=== PATIENT | female | born 1990 | race Caucasian/White ===

== ENCOUNTER 2018-01-02 19:12 | Emergency (ER) | payer OTHER ==
[~2018-01-02] VITALS: Ht 167.6 cm; Wt 79.0 kg
[2018-01-02 19:20] VITALS: BP 126/84
[2018-01-02] MEDS ORDERED: IBUPROFEN 200 MG TABLET ONE (19:47)
[2018-01-02] MEDS ORDERED: IBUPROFEN 200 MG TABLET PO ONE (20:00)
== END 2018-01-02 20:27 | disposition home or self-care (01) ==
LOC: ED 20:21
DX: J02.0 Streptococcal pharyngitis (principal)
CPT/HCPCS: 87880; 99283

== ENCOUNTER 2018-05-03 12:42 | Emergency (ER) | payer OTHER ==
[~2018-05-03] VITALS: Ht 167.6 cm; Wt 85.0 kg
[2018-05-03] MEDS ORDERED: CEFTRIAXONE 250 MG ONE (13:41)
[2018-05-03] MEDS ORDERED: AZITHROMYCIN 500 MG TABLET ONE (13:41)
[2018-05-03] MEDS ORDERED: CEFTRIAXONE 250 MG IM ONE (14:00)
[2018-05-03] MEDS ORDERED: AZITHROMYCIN 250 MG TABLET PO ONE (14:00)
[2018-05-03 14:15] LABS: CLUE CELLS NONE SEEN (NONE SEEN); WET PREP WBCS NONE SEEN (FEW)
[2018-05-03 14:58] VITALS: BP 124/68
== END 2018-05-03 15:08 | disposition home or self-care (01) ==
LOC: ED 14:48
DX: N89.8 Other specified noninflammatory disorders of vagina (principal); Z86.59 Personal history of other mental and behavioral disorders
CPT/HCPCS: 87210; 87491; 87591; 87808; 96372; 99283; J0696

== ENCOUNTER 2018-11-14 17:00 | Emergency (ER) | payer MEDICAID, OTHER ==
[~2018-11-14] VITALS: Ht 167.6 cm; Wt 83.2 kg
[2018-11-14 17:39] LABS: ALANINE AMINOTRANSFERASE 18 U/L (12-78); ANION GAP 7 mmol/L (5-15); CALCIUM 8.6 mg/dL (8.5-10.1); CHLORIDE 104 mmol/L (98-107); CREATININE 0.89 mg/dL (0.55-1.02)
[2018-11-14 17:43] LABS: ALKALINE PHOSPHATASE 81 U/L (45-117); BILIRUBIN,TOTAL 0.3 mg/dL (0.2-1.0)
[2018-11-14 18:22] VITALS: BP 141/105
--- NOTE | 2018-11-14 18:58 | NUR ---
PT TO ROOM FROM LOBBY.
[2018-11-14] MEDS ORDERED: CLON0.1T22 PO (19:07)
[2018-11-14] MEDS ORDERED: LISD70CA5 PO (19:08)
[2018-11-14 19:32] LABS: BASOPHILS # (AUTO) 0.03 x10^3/uL (0-0.1); BASOPHILS % (AUTO) 0 % (0-1); EOSINOPHILS # (AUTO) 0.07 x10^3/uL (0-0.4); EOSINOPHILS % (AUTO) 1 % (1-7); LYMPHOCYTES # (AUTO) 1.71 x10^3/uL (1-3.4); LYMPHOCYTES % (AUTO) 20 % (22-44); MD NO; MEAN CORPUSCULAR HEMOGLOBIN 29.4 pg (27.0-34.8); MEAN CORPUSCULAR HGB CONC 33.5 g/dL (32.4-35.8); MEAN CORPUSCULAR VOLUME 87.8 fL (80-100); MEAN PLATELET VOLUME 9.1 fL (7.4-10.4); MONOCYTES # (AUTO) 0.35 x10^3/uL (0.2-0.8); MONOCYTES % (AUTO) 4 % (2-9); NEUTROPHILS # (AUTO) 6.21 x10^3/uL (1.8-6.8); NEUTROPHILS % (AUTO) 74 % (42-75); PLATELET COUNT 204 x10^3/uL (130-400); RED BLOOD COUNT 4.52 x10^6/uL (3.82-5.3); RED CELL DISTRIBUTION WIDTH 14.1 % (9.6-15.2)
--- NOTE | 2018-11-14 19:36 | NUR ---
PT IN HOSPITAL GOWN. ROOM SET UP FOR PELVIC EXAM WHICH HAS BEEN COMPLETED. PT ATTEMPTED TO PROVIDE URINE SAMPLE. NONE YET. PT HAS CUP. PT IN US AT THIS TIME.
== END 2018-11-14 20:57 | disposition home or self-care (01) ==
LOC: ED 20:39
DX: N92.0 Excessive and frequent menstruation with regular cycle (principal); F17.200 Nicotine dependence, unspecified, uncomplicated; F98.8 Other specified behavioral and emotional disorders with onset usually occurring in childhood and adolescence
CPT/HCPCS: 36415; 76856; 80053; 84703; 85025; 99284

== ENCOUNTER 2018-11-15 09:24 | Emergency (ER) | payer MEDICAID ==
[~2018-11-15] VITALS: Ht 167.6 cm; Wt 83.6 kg
[~2018-11-15 09:24] MED LIST: CLON0.1T22 PO; LISD70CA5 PO
--- NOTE | 2018-11-15 09:49 | NUR ---
TO ROOM FROM LOBBY. NAD.
[2018-11-15] MEDS ORDERED: IBUPROFEN 200 MG TABLET PO ONE (10:00)
[2018-11-15] MEDS ORDERED: IBUPROFEN 600 MG TABLET ONE (10:04)
--- NOTE | 2018-11-15 10:15 | NUR ---
ST CATH FOR URINE SPECIMEN PER ERP ORDER. SPECIMEN WALKED TO LAB. PT PROVIDED SHEET AND CALL LIGHT, WITHIN REACH.
[2018-11-15 11:02] LABS: CULTURE INDICATED? YES; MICROSCOPIC INDICATED
--- NOTE | 2018-11-15 11:36 | NUR ---
UA RESULTS BACK, PT FOR RECHECK.
[2018-11-15 12:15] VITALS: BP 128/61
== END 2018-11-15 12:17 | disposition home or self-care (01) ==
LOC: ED 12:11
DX: N93.8 Other specified abnormal uterine and vaginal bleeding (principal); R19.7 Diarrhea, unspecified; F98.8 Other specified behavioral and emotional disorders with onset usually occurring in childhood and adolescence
CPT/HCPCS: 81001; 87086; 99283